=== PATIENT | female | born 1990 | race Caucasian/White ===

== ENCOUNTER 2020-09-05 15:39 | Emergency (ER) | payer MEDICAID, OTHER ==
[~2020-09-05] VITALS: Ht 165.1 cm; Wt 65.8 kg
[2020-09-05 15:39] VITALS: BP 140/88
[2020-09-05 17:28] LABS: Urine Bacteria FEW /hpf (None Seen); Urine Blood 3+ /uL (Negative); Urine Mucus FEW (None Seen); Urine Specific Gravity 1.035 (1.001-1.035); Urine WBC 7 /hpf (0 - 5)
== END 2020-09-05 18:31 | disposition home or self-care (01) ==
LOC: ER 15:39
DX: N93.8 Other specified abnormal uterine and vaginal bleeding (principal); Z32.02 Encounter for pregnancy test, result negative; Z98.51 Tubal ligation status
CPT/HCPCS: 76856; 81001; 81025